=== PATIENT | female | born 1955 | race Caucasian/White ===

== ENCOUNTER 2016-10-05 18:06 | Emergency (ER) | payer OTHER ==
[~2016-10-05] VITALS: Ht 152.4 cm; Wt 64.5 kg
[~2016-10-05 18:06] MED LIST: ATEN50TA PO; HYDR25TA6 PO; METF-480 PO
[2016-10-05 18:27] VITALS: Ht 152.4 cm; Wt 64.5 kg
[2016-10-05] MEDS ORDERED: LIDOCAINE 1% (MDV) 20 ML INJ SC ONE (22:00)
[2016-10-05] MEDS ORDERED: traMADol 50 MG TAB PO ONE (22:00)
[2016-10-05] MEDS ORDERED: IBUP-1542 PO (22:52)
[2016-10-05] MEDS ORDERED: CEPH-443 PO (22:52)
[2016-10-05] MEDS ORDERED: HYDR-906 PO (22:52)
[2016-10-05] MEDS ORDERED: BACTDS PO (22:52)
--- NOTE | 2016-10-05 23:37 | ERD ---
ER Documentation Chief Complaint Date/Time DATE: 10/05/16 TIME: 23:24 Chief Complaint abscess mid chest HPI Patient is a 61-year-old female who presents to the emergency department with an abscess on the mid chest. Patient states that she discovered a lump 1 year ago and has been increasing ever since. Redness and pain then started 3 days ago. Patient had episodes of chills and she thinks that she has a fever. Denies any shortness of breath, nausea, vomiting, palpitation, diaphoresis, paresthesia or paresis. She has a history of diabetes and hypertension. Patient takes carvedilol, metformin and hydrochlorothiazide. ROS All systems reviewed and are negative except as per history of present illness. Medications Home Meds Active Scripts Hydrocodone/Acetaminophen (Nelson 5-325 Tablet) 1 Each Tablet, 1 TAB PO Q6H Y for PAIN, #10 TAB Prov:BECKA CHASE 10/05/16 Ibuprofen* (Motrin*) 600 Mg Tab, 600 MG PO Q6H Y for PAIN AND OR ELEVATED TEMP, #30 TAB Prov:BECKA CHASE 10/05/16 Cephalexin* (Keflex*) 500 Mg Capsule, 500 MG PO QID for 7 Days, CAP Prov:BECKA CHASE 10/05/16 Sulfamethoxazole-Trimethoprim* (Bactrim* DS) 800-160 Mg Tab, 1 TAB PO BID for 7 Days, TAB Prov:BECKA CHASE 10/05/16 Reported Medications Metformin* (Glucophage*) 850 Mg Tablet, 500 MG PO BID 03/05/11 Hydrochlorothiazide (Hydrochlorothiazide) 25 Mg Tablet, 25 MG PO DAILY 03/05/11 Atenolol* (Atenolol*) 50 Mg Tablet, 50 MG PO DAILY 03/05/11 Allergies Allergies: Coded Allergies: No Known Allergy (Verified , 10/05/16) PMhx/Soc History of Surgery: No (HTN. DM. ) Anesthesia Reaction: No Hx Neurological Disorder: No Hx Respiratory Disorders: No Hx Cardiac Disorders: No (HTN) Hx Psychiatric Problems: No Hx Miscellaneous Medical Probl: No Hx Alcohol Use: No Hx Substance Use: No Hx Tobacco Use: No Smoking Status: Unknown if ever smoked Physical Exam Vitals Vital Signs Date Time Temp Pulse Resp B/P Pulse Ox O2 Delivery O2 Flow Rate FiO2 10/05/16 18:27 98.9 78 20 138/85 98 Physical Exam Physical Exam CONST: Well-developed, well-nourished, in no acute distress. Nontoxic in appearance. HEENT: Atraumatic. Normal conjunctiva. EOM intact. TM intact. External ear is normal. Clear oropharnyx without erythema. No uvular deviation. Moist mucous membranes. Supple neck. No meningismus. No submandibular induration. RESP: Clear to auscultation bilaterally. No wheezing. CARDIO: Regular rate and rhythm, no murmurs. ABD: Soft, non tender, non distended. Normal bowel sounds. No McBurney's point tenderness. No guarding or rigidity. No peritoneal signs. SKIN: 3 x 3.5 cm erythematous, soft and tender lump on the midsternal area. No ulceration or drainage. BACK: No midline or flank tenderness. EXT: No cyanosis or edema. Distal pulses equal and bilateral. NEURO: Awake and alert, appropriate for age. Results 24 hrs Current Medications Medications (Trade) Dose Ordered Sig/Cal Route PRN Reason Start Time Stop Time Status Last Admin Dose Admin Lidocaine (Xylocaine 1% (Mdv) 20 ml) 20 ml ONCE ONCE SC 10/05/16 22:00 10/05/16 22:02 DC Tramadol HCl (Ultram) 50 mg ONCE ONCE PO 10/05/16 22:00 10/05/16 22:02 DC 10/05/16 22:12 Procedures/MDM EMERGENCY DEPARTMENT COURSE/MEDICAL DECISION MAKING This is a 52-year-old female who comes to emergency room with an increasing superficial closed abscess on this midsternal area. The patient was given Ultram in the department. Abscess Incision and Drainageby me: Location: Midsternal area Anesthesia: [Local 1% Lidocaine] Technique: [3 cm incision was made using a scalpel] Packing: [Iodoform packing] Complications: [Neurovascularly intact post procedure] Approximately 5 mL of purulent drainage was removed. A small amount of formed, soft abscess tissue was also removed. Wound was packed with iodoform strip and covered with dressing. My primary diagnosis is abscess. Differential diagnoses considered but not limited to cellulitis, folliculitis, foreign body, contact dermatitis. Pt is hemodynamically stable upon reassessment. The patient was discharged for outpatient management with a prescription for Bactrim, Keflex, Nelson and ibuprofen. The patient was advised to return to ED in 2 days for a wound recheck. Patient was also instructed to followup with their PMD in 1-2 days and to return to the Emergency Department if there are any new or worsening symptoms. The patient understood and agreed with the diagnosis, treatment and plan. Patient is stable for discharge at this time. Departure Diagnosis: Primary Impression: Abscess Condition: Stable Patient Instructions: Abscess, Incision And Drainage Ref[facility] Usted se quiroz hecho un examen mdico de control que le indica que no est en lewis condicin que requiera tratamiento urgente en el Departamento de Emergencia. Un estudio ms profundo y el tratamiento de fuentes condicin pueden esperar sin ningn riesgo hasta que usted sea atendida/o en el consultorio de fuentes mdico o lewis cl gaston. Es responsabilidad suya arreglar lewis noah para el seguimiento del santino. MANEJO DE CONDICIONES NO URGENTES EN EL FUTURO 1) Si usted tiene un mdico de atencin primaria: Usted debera llamar a fuentes mdico de atencin primaria antes de venir al departamento de emergencia. Despus de las horas de consultorio, fuentes doctor o fuentes asociado/a est disponible por telfono. El mdico o enfermero de mahendra en el servicio telefnico puede asesorarle por ana medio para atender el problema, o santino contrario se puede programar lewis noah. 2) Si usted no tiene un mdico de atencin primaria: Llame al mdico o clnica de referencia que aparece abajo dayana las horas de consultorio para hacer lewis noah para que le vean. CLINICAS: [facility] [phone] [facility] [phone] [facility] [phone] [facility] [phone] [facility]. [place] [phone] [facility]. [phone] [facility] () Usted se quiroz hecho un examen mdico de control que le indica que no est en lewis condicin que requiera tratamiento urgente en el Departamento de Emergencia. Un estudio ms profundo y el tratamiento de fuentes condicin pueden esperar sin ningn riesgo hasta que usted sea atendida/o en el consultorio de fuentes mdico o lewis cl gaston. Es responsabilidad suya arreglar lewis noah para el seguimiento del santino. MANEJO DE CONDICIONES NO URGENTES EN EL FUTURO 1) Si usted tiene un mdico de atencin primaria: Usted debera llamar a fuentes mdico de atencin primaria antes de venir al departamento de emergencia. Despus de las horas de consultorio, fuentes doctor o fuentes asociado/a est disponible por telfono. El mdico o enfermero de mahendra en el servicio telefnico puede asesorarle por ana medio para atender el problema, o santino contrario se puede programar lewis noah. 2) Si usted no tiene un mdico de atencin primaria: Llame al mdico o condado institucions de referencia que aparece abajo dayana las horas de consultorio para hacer lewis noah para que le vean. SI USTED NO PUEDE PAGAR PARA ZAHIRA UN MEDICO puede ir a: [facility] [address] [place] [address] [facility] [address] [place] [address] [facility] [address] [place] [address] [facility] [facility] [address] [place] [address] Additional Instructions: Volver a ED en 2 daley para que vuelva a verificar la de la herida Seguimiento con fuentes mdico de atencin primaria en 1-2 daley. Volver al Departamento de la emergencia inmediatamente si tiene alguno nuevo o empeoramiento de los sntomas, incontrolada fiebre u otros sntomas inexplicables. [place] todos los medicamentos anirudh lo indique. BECKA CHASE Oct 05, 2016 23:36
== END 2016-10-05 23:00 | disposition home or self-care (01) ==
LOC: FTE 18:06
DX: L02.213 Cutaneous abscess of chest wall (principal); I10 Essential (primary) hypertension; E11.9 Type 2 diabetes mellitus without complications; Z79.84 Long term (current) use of oral hypoglycemic drugs
CPT/HCPCS: 10061; Z7502; Z7610

== ENCOUNTER 2019-03-09 18:43 | Emergency (ER) | payer OTHER ==
[~2019-03-09] VITALS: Ht 141 cm; Wt 64.4 kg
[~2019-03-09 18:43] MED LIST changes: +BACTDS PO; +CEPH-443 PO; +FAMO-96 PO; +HYDR-4011 PO; +IBUP-1542 PO; +ONDA8TAB14 PO
[2019-03-09 18:57] VITALS: Ht 141 cm; Wt 64.4 kg
[2019-03-09] MEDS ORDERED: SOD CHLORIDE 0.9% 500 ML IV ONE (20:30)
--- NOTE | 2019-03-09 21:04 | ERD ---
ER Documentation Chief Complaint Chief Complaint sent by PMD x more diagnostics;labs were showing 'pancreatitis'; hx DM&HTN HPI This is a 63-year-old female who presents for 3 days of intermittent right flank pain, associated with nausea but no vomiting. She had labs, performed by her PMD which reportedly showed an elevated amylase and lipase, and she was advised to present for further evaluation. She denies any chest pain or shortness of breath, she has not had any urinary symptoms. There are no alleviating or aggravating factors. She has been tolerating oral intake, and has had no associated fever. ROS All systems reviewed and are negative except as per history of present illness. Medications Home Meds Active Scripts Hydrocodone/Acetaminophen ([place] 5-325 Tablet) 1 Each Tablet, 1 TAB PO Q6H PRN for PAIN, #10 TAB Prov:BECKA CHASE 10/05/16 Ibuprofen* (Motrin*) 600 Mg Tab, 600 MG PO Q6H PRN for PAIN AND OR ELEVATED TEMP, #30 TAB Prov:BECKA CHASE 10/05/16 Cephalexin* (Keflex*) 500 Mg Capsule, 500 MG PO QID for 7 Days, CAP Prov:BECKA CHASE 10/05/16 Sulfamethoxazole-Trimethoprim* (Bactrim* DS) 800-160 Mg Tab, 1 TAB PO BID for 7 Days, TAB Prov:BECKA CHASE 10/05/16 Reported Medications Metformin* (Glucophage*) 850 Mg Tablet, 500 MG PO BID 03/05/11 Hydrochlorothiazide (Hydrochlorothiazide) 25 Mg Tablet, 25 MG PO DAILY 03/05/11 Atenolol* (Atenolol*) 50 Mg Tablet, 50 MG PO DAILY 03/05/11 Allergies Allergies: Coded Allergies: No Known Allergy (Verified , 10/05/16) PMhx/Soc History of Surgery: No (hysterectomy) Anesthesia Reaction: No Hx Neurological Disorder: No Hx Respiratory Disorders: No Hx Cardiac Disorders: No (HTN) Hx Psychiatric Problems: No Hx Miscellaneous Medical Probl: No Hx Alcohol Use: No Hx Substance Use: No Hx Tobacco Use: No Smoking Status: Never smoker Physical Exam Vitals Vital Signs Date Temp Pulse Resp B/P (MAP) Pulse Ox O2 O2 Flow FiO2 Time Delivery Rate 03/09/19 85 15 184/103 100 Room Air 20:38 (130) 03/09/19 97.6 79 18 210/98 98 18:57 (135) Physical Exam Const: No acute distress Head: Atraumatic Eyes: Normal Conjunctiva ENT: Normal External Ears, Nose and Mouth. Neck: Full range of motion. No meningismus. Resp: Clear to auscultation bilaterally Cardio: Regular rate and rhythm, no murmurs Abd: Soft, non tender, non distended. Normal bowel sounds Skin: No petechiae or rashes Back: No midline or flank tenderness Ext: No cyanosis, or edema Neur: Awake and alert Psych: Normal Mood and Affect Result Diagram: 03/09/19193603/09/191936 Results 24 hrs Laboratory Tests Test 03/09/19 19:37 03/09/19 19:38 White Blood Count 7.3 10^3/ul Red Blood Count 4.65 10^6/ul Hemoglobin 13.1 g/dl Hematocrit 39.3 % Mean Corpuscular Volume 84.5 fl Mean Corpuscular Hemoglobin 28.2 pg Mean Corpuscular Hemoglobin Concent 33.3 g/dl Red Cell Distribution Width 13.9 % Platelet Count 168 10^3/UL Mean Platelet Volume 13.4 fl Immature Granulocytes % 0.100 % Neutrophils % 45.8 % Lymphocytes % 41.7 % Monocytes % 9.4 % Eosinophils % 2.3 % Basophils % 0.7 % Nucleated Red Blood Cells % 0.0 /100WBC Immature Granulocytes # 0.010 10^3/ul Neutrophils # 3.4 10^3/ul Lymphocytes # 3.1 10^3/ul Monocytes # 0.7 10^3/ul Eosinophils # 0.2 10^3/ul Basophils # 0.1 10^3/ul Nucleated Red Blood Cells # 0.0 10^3/ul Sodium Level 140 mmol/L Potassium Level 3.2 mmol/L Chloride Level 97 mmol/L Carbon Dioxide Level 30 mmol/L Anion Gap 13 Blood Urea Nitrogen 17 mg/dl Creatinine 0.80 mg/dl Est Glomerular Filtrat Rate mL/min > 60 mL/min Glucose Level 190 mg/dl Calcium Level 10.8 mg/dl Total Bilirubin 0.4 mg/dl Direct Bilirubin 0.00 mg/dl Indirect Bilirubin 0.4 mg/dl Aspartate Amino Transf (AST/SGOT) 94 IU/L Alanine Aminotransferase (ALT/SGPT) 87 IU/L Alkaline Phosphatase 104 IU/L Troponin I < 0.012 ng/ml Total Protein 8.8 g/dl Albumin 4.9 g/dl Globulin 3.90 g/dl Albumin/Globulin Ratio 1.25 Lipase 394 U/L Urine Color YELLOW Urine Clarity CLEAR Urine pH 5.0 Urine Specific [place] 1.016 Urine Ketones NEGATIVE mg/dL Urine Nitrite NEGATIVE mg/dL Urine Bilirubin NEGATIVE mg/dL Urine Urobilinogen NEGATIVE mg/dL Urine Leukocyte Esterase NEGATIVE Carmen/ul Urine Hemoglobin NEGATIVE mg/dL Urine Glucose NEGATIVE mg/dL Urine Total Protein NEGATIVE mg/dl Current Medications Medications Dose Sig/Cal Start Time Status Last (Trade) Ordered Route PRN Stop Time Admin Dose Reason Admin Sodium 500 ml @ Q1H ONCE 03/09/19 03/09/19 Chloride 500 mls/hr IV 20:30 20:38 03/09/19 21:29 Procedures/MDM This is a pleasant 63-year-old female presents for evaluation of flank/back pain. On exam patient was well-appearing nontoxic, she had no peritoneal signs on exam, no cardiopulmonary symptoms suggestive of an anginal equivalent. Additionally her cardiac was work-up was negative. I noted a very mildly elevated lipase, clinically she has no evidence of acute pancreatitis, as she is tolerating oral intake, and her pain is controlled. Her CT abdomen pelvis did not show any acute findings, her overlying skin shows no signs of cellulitis. Discussed findings and plan of care with the patient and her daughter, the patient felt comfortable with discharge home, this is reasonable option, I recommended a soft diet, will provide Zofran for nausea. I advised her to return for recheck in 48 to 72 hours if her symptoms not improve, however she should return sooner if she has worsening pain fever or other worsening symptoms at discharge she was in no distress. EKG: Rate/Rhythm: Normal Sinus Rhythm QRS, ST, T-waves: No changes consistent w/ acute ischemia Impression: No evidence of ischemia or arrhythmia Departure Diagnosis: Primary Impression: Abdominal pain Abdominal location: unspecified location Qualified Codes: R10.9 - Unspecified abdominal pain Condition: Stable TWYLA WOODWARD MD Mar 09, 2019 21:02
[2019-03-09 21:27] VITALS: BP 192/104; PULSE 76; RESP 20
== END 2019-03-09 21:30 | disposition home or self-care (01) ==
LOC: E/R 18:43
DX: R10.9 Unspecified abdominal pain (principal); I10 Essential (primary) hypertension; E11.9 Type 2 diabetes mellitus without complications; Z79.84 Long term (current) use of oral hypoglycemic drugs
CPT/HCPCS: 36415; 71045; 74176; 80053; 81003; 83690; 84484; 85025; J7040; Z7502; 93005